=== PATIENT | female | born 1940 | race Caucasian/White ===

== ENCOUNTER 2020-08-25 16:32 | Emergency (ER) | payer MEDICARE, BC ==
--- NOTE | 2020-08-25 17:50 | RADIOLOGY REPORT (SQ) ---
EXAM DESCRIPTION: CHEST SINGLE VIEW IMAGES COMPLETED DATE/TIME: 08/25/2020 5:35 pm REASON FOR STUDY: sob COMPARISON: None. EXAM PARAMETERS: NUMBER OF VIEWS: One view. TECHNIQUE: Single frontal radiographic view of the chest acquired. RADIATION DOSE: NA LIMITATIONS: None. FINDINGS: LUNGS AND PLEURA: Lingular atelectasis versus scarring. Subtle retrocardiac opacity. No pleural effusion or pneumothorax. MEDIASTINUM AND HILAR STRUCTURES: No masses. Contour normal. HEART AND VASCULAR STRUCTURES: Heart normal in size. Normal vasculature. BONES: No acute findings. HARDWARE: None in the chest. OTHER: No other significant finding. IMPRESSION: In the appropriate clinical setting, a subtle retrocardiac opacity may represent a devel oping airspace process. TECHNICAL DOCUMENTATION: JOB ID: [id number] 2010 [employer]- All Rights Reserved Reading location - IP/workstation name: [email or web address]
--- NOTE | 2020-08-25 18:00 | ER Document Report ---
ED General - General Chief Complaint: Shortness Of Breath Stated Complaint: SHORTNESS OF BREATH Notes: Patient is a 80-year-old white female with a history of left carotid endarterectomy and benign multiple thyroid nodules who presents to the emergency department with a chief complaint of flatulence. Patient reports because of the nodule she eats small frequent meals throughout the day. States that she is more of a berry picker or grazer when it comes to eating. She states that she is down here visiting her grandchildren who are in their mid 20s and that she does not see them very much and they are not familiar with her behaviors. She states she went [facility] had a large sandwich and a full bowl of soup which was uncharacteristic for her. She states afterwards she was very gassy. She states she has been belching quite a bit. She states the gas was creating some fullness in the abdomen. She states this is happened to her many times before if she eats too much. She states her grandchildren have never seen this however though and they became very concerned given the current pandemic climate and recommended she come for evaluation. The grandmother states that she tried to convince them this was normal for her but the grandchildren she states were 2 against 1 and they made her come. She states she currently feels asymptomatic. She states she does have a little bit of gas but has no other complaints. She states no chest pain no shortness of breath no sore throat no trouble breathing no back pain no abdominal pain no diarrhea no constipation no vomiting no urinary complaints no headache no known sick contacts. Past Medical History - Social History Smoking Status: Unknown if Ever Smoked Family History: Reviewed & Not Pertinent Review of Systems - Review of Systems Constitutional: denies: Fever EENT: denies: Nose pain Cardiovascular: denies: Orthopnea Respiratory: denies: Hemoptysis Gastrointestinal: denies: Blood streaked bowels Genitourinary: denies: Hematuria Female Genitourinary: denies: Vaginal discharge Musculoskeletal: denies: Joint swelling Skin: denies: Dryness Hematologic/Lymphatic: denies: Easy bleeding Neurological/Psychological: denies: Weakness Physical Exam - Vital signs Vitals: Temp Pulse Resp BP Pulse Ox 98.5 F 66 18 178/58 H 94 08/25/20 17:15 08/25/20 17:15 08/25/20 17:15 08/25/20 17:15 08/25/20 17:15 - General General appearance: Appears well, Alert In distress: None - HEENT Head: Normocephalic, Atraumatic Eyes: Normal Conjunctiva: Normal Eyelashes: Normal Pupils: PERRL Nasal: Normal Mouth/Lips: Normal Mucous membranes: Normal Pharynx: Normal Neck: Normal - Respiratory Respiratory status: No respiratory distress Chest status: Nontender Breath sounds: Normal Chest palpation: Normal - Cardiovascular Rhythm: Regular Heart sounds: Normal auscultation - Extremities General upper extremity: Normal inspection. No: Edema General lower extremity: Normal inspection. No: Edema - Neurological Neuro grossly intact: Yes Cognition: Normal Orientation: AAOx4 Monik Coma Scale Eye Opening: Spontaneous [place] Coma Scale Verbal: Oriented [place] Coma Scale Motor: Obeys Commands Monik Coma Scale Total: 15 Speech: Normal Motor strength normal: LUE, RUE, LLE, RLE Sensory: Normal - Psychological Associated symptoms: Normal affect, Normal mood - Skin Skin Temperature: Warm Skin Moisture: Dry Skin Color: Normal Course - Re-evaluation Re-evalutation: 08/25/20 18:00 Patient is pleasant and asymptomatic sitting in the bed reading a book. She reports asymptomatic with the exception of some expected flatulence given her history. We discussed Gas-X medications. Her vitals are within normal limits. Feel no further work-up or observation here in the emergency department is warranted. I did recommend that she follow-up with her doctor as planned for follow-up. I also strongly recommended that she should return here or the nearest ER immediately with any new, persistent or worsening symptoms. She verbalized understood and agreed. - Vital Signs Vital signs: Temp Pulse Resp BP Pulse Ox 98.5 F 66 18 178/58 H 94 08/25/20 17:15 08/25/20 17:15 08/25/20 17:15 08/25/20 17:15 08/25/20 17:15 Discharge - Discharge Clinical Impression: Normal exam, Flatulence Condition: Stable Disposition: HOME, SELF-CARE Instructions: Normal Exam and Workup ([facility]) Additional Instructions: Follow-up with your regular doctor in 2 to 3 days for reevaluation. Return here or any ER immediately with any new, persistent or worsening symptoms. Referrals: [facility] [NO LOCAL MD] - Follow up as needed
[2020-08-25 18:32] VITALS: BP 150/49
== END 2020-08-25 18:32 | disposition home or self-care (01) ==
LOC: ER 16:32
DX: R14.3 Flatulence (principal); R14.2 Eructation; R06.02 Shortness of breath
CPT/HCPCS: 71045; 99283